=== PATIENT | male | born 1965 | race Caucasian/White ===

== ENCOUNTER 2022-01-18 11:21 | Day surgery (SDC) | payer OTHER, SELFPAY ==
[2022-01-18] VITALS (14 sets, daily range): BP systolic 111–154; BP diastolic 73–107; PULSE 73–91; RESP 13–19; TEMP 36.1–37.7; O2SAT 92–99; BMI 28.7
--- NOTE | 2022-01-18 07:51 | DI.RAD.S_ITS ---
PROCEDURE: XR SHOULDER LT 1V INDICATIONS: post op total shoulder TECHNIQUE: Single views of the shoulder were acquired. COMPARISON: None. FINDINGS: Bones: Left humeral head prosthesis is present. There is gross anatomic alignment of the glenohumeral joint. Acromioclavicular distance is 0.9 cm. The coracoclavicular distance is normal. Soft tissues: No suspicious soft tissue calcifications. No suspicious foreign bodies. IMPRESSION: 1. Single-view appearance of left shoulder arthroplasty as detailed above. Dictated by: Yady Narayan M.D. on 01/18/2022 at 17:06 Approved by: Yady Narayan M.D. on 01/18/2022 at 17:07
[2022-01-18] MEDS: ACETAMINOPHEN 325 MG TABLET 975 MG PO (11:47)
[2022-01-18] MEDS: PREGABALIN 75 MG CAPSULE PO (11:49)
[2022-01-18] MEDS: CELECOXIB 200 MG CAPSULE PO (11:49)
[2022-01-18] MEDS: LACTATED RINGERS 1,000 ML 42 ML IV (12:02)
[2022-01-18 12:12] LABS: COVID19 -Nasal RAPID Negative (Negative)
--- NOTE | 2022-01-18 12:56 | PM.PREOP ---
Pre-operative Note COVID-19 COVID-19 status: Negative Result date/Date tested (Pos, Neg/Pending): 01/18/22 Interval Note History & Physical reviewed/Exam performed by Physician: Yes Changes to H&P: No
[2022-01-18] MEDS: CEFAZOLIN 2 GM/20 ML SYRINGE IV (14:17)
[2022-01-18] MEDS: TRANEXAMIC ACID 1,000 MG VIAL 1000 MG INJ ×2 (14:25→15:39)
--- NOTE | 2022-01-18 14:35 | PM.PROC.1 ---
Procedures Date/Time Date of procedure: 01/18/22 Time of procedure: 13:50 Nerve Block Time out performed: Yes Local anesthetic used: other (15mL 0.5% Ropivacaine, 5mL 2% Lidocaine w/ epi) Location of anesthetic used: interscalene Amount of anesthesia used (mL): 20 Nerve blocks: brachial plexus (interscalene) Procedure successful: Yes Patient tolerated procedure: well Complications: none Additional comments: Brachial plexus nerve block for post operative pain management. Risks and benefits discussed, including bleeding, infection, intravascular injection, nerve damage, block failure. Standard ASA monitors, NC O2. Pt supine. Chloroprep site preparation, sterile technique. Brachial plexus identified with US guidance, traced from supraclavicular to interscalene. 1mL 2% lidocaine skin wheal. 22g x 50mm Pajunk advanced with in-plane US guidance to brachial plexus. Negative aspiration. LA injected with intermittent negative aspiration. Good LA spread noted on US. No pain, no paraesthesia. Pt tolerated procedure well. Vital signs stable.
--- NOTE | 2022-01-18 14:45 | SUR.OPER ---
Beach chair with Schlein shoulder positioner. Lower body on padded OR bed. Head in foam padded head cradle, secured with straps. Non-operative arm secured with cross-body strap, <90 degrees abduction. Pillow under knees. Safety belt at thigh. Gel pad under bilateral heels.
--- NOTE | 2022-01-18 14:52 | SUR.PREOP ---
01/18/22-1347- time out done with Dr Chaves. Sedation started. oxygen at 2l nc. monitors on . ekg-nsr. vs monitored [id number]. procedure completed at 1357. pt tolerated well. sedated but easily aroused. 1400-to OR With RN.
[2022-01-18] MEDS: THROMBIN (RECOMBINANT) 5,000 UNIT VIAL 5000 UNIT TOP (15:15)
[2022-01-18] MEDS: LIDOCAINE 1% W/EPI 20 ML INJ (15:55)
--- NOTE | 2022-01-18 16:01 | P.OP_ITS ---
Operative Date/Time/Diagnoses Date of procedure: 01/18/22 Time of procedure: 16:01 Pre-op diagnosis: Left shoulder posttraumatic osteoarthritis Post-op diagnosis: same Procedure & Clinicians Procedure: Left total shoulder replacement Same procedure as scheduled: Yes Indications: The patient has had progressively worsening left shoulder pain with radiographic changes consistent with arthritis after multiple prior surgeries. Non-operative management has failed and the patient has requested total shoulder replacement. The risks, benefits and alternatives to surgery were discussed with the patient prior to proceeding. Risks discussed included, but were not limited to, failure to relieve pain, stiffness, infection, nerve damage, deep venous thrombosis, pulmonary embolism, stroke, coma, heart attack, permanent paralysis and , as well as the potential need for eventual revision of the prosthetic. Surgeon: Lei Mccann Boiler Plant Operator: Chikis Anthony Click Yes if Unassisted: No Anesthesia Type: General, Peripheral nerve block and Local Operative Notes Findings: Severe osteoarthritis of the left glenohumeral joint with large humeral osteophytes and significant cartilage damage, intact rotator cuff, previously tenodesed biceps. Closure Type: primary Specimen(s): none sent Prosthetic devices, grafts, tissues, transplants, or devices: Implants used in this procedure manufactured by the [employer] and included a 50 mm all polyethylene pegged E +glenoid, a 50 mm x 18 mm neutral humeral head, and a size 2 canal sparing stem. Applied: implant(s) Estimated Blood Loss (mL): 100 Blood products transfused: none Procedure in detail: The patient was seen in the pre-operative area, where the patient identified the right shoulder as the operative site and this was marked with my initials. The patient received pre-operative antibiotics, underwent an interscalene block, and was taken to the operating room and placed on the operative table in the supine position. After satisfactory anesthesia, a full ?time out? was performed. The patient was repositioned in the ?beach chair? position using a dedicated positioner. All pressure points were well padded, and the knees were slightly bent to prevent tension on the sciatic nerves. The right arm was prepared from the fingers to the base of the neck with ChloroPrep in the usual fashion and draped through sterile drapes. An approximately 15 cm incision was created, starting at the clavicle above the coracoid process and extended towards the deltoid insertion. The deltopectoral interval was used to access the shoulder. The cephalic vein was taken medially. A self retaining retractor was placed. The upper centimeter of the pectoralis major tendon was released. The ?three sisters? were identified and cauterized. The axillary nerve was palpated and protected throughout the case. The biceps groove was used as a guide to access the shoulder joint. The biceps had been tenodesed previous procedure and was not tenodesed at this procedure. The subscapularis was released from the lesser tuberosity with a subscapularis tenotomy and tagged for later repair. The shoulder was dislocated and a cutting guide was used for the proximal humeral osteotomy in 30 degrees of retroversion. A trial humeral head was used to position a guide pin in the center of the cut surface and the collar Reamer was used. A size 2 Broach was placed. A proximal humeral protector was then placed. We then removed the self-retaining retractor and placed retractors to access the glenoid. The subscapularis was released with a ?360 degree release? with care being taken to protect the axillary nerve with the inferior portion of this procedure. The remnant of labrum and biceps stump were removed. The appropriate size reamer was chosen with the glenoid sizer, and the guide pin placed. The glenoid was appropriately reamed. The guide for the peripheral holes was used and the center hole enlarged. The trial glenoid was placed with good stability. We then cemented the final implant into place after irrigating the peg holes and drying them with thrombin-soaked Gelfoam. We returned our attention to the humerus, a trial humeral head was applied and a trial reduction performed. Stability was checked with 50% posterior translation with spontaneous reduction, 45? external rotation at the side with the subscapularis held in the repaired position and 70? of internal rotation in the ?[place] position?.. This was felt to be satisfactory and the appropriate implants were opened. Five holes were drilled along the humeral osteotomy and #2 Ethibond sutures placed for eventual subscapularis repair. The humeral prosthetic was impacted into the humerus. The humeral head was applied when the stem was still slightly proud and impacted to both seat the head and fully seat the stem. The joint was relocated one final time. The joint was irrigated and the subscapularis repaired to the previously placed sutures using Fernando-Minesh sutures. The top of the subscapularis was closed to the leading edge of the supraspinatus with a figure of 8 #2 Ethibond to close the rotator interval. The deltopectoral interval was closed with interrupted 0 Vicryl. The subcutaneous layer was closed with 3-0 Vicryl, and the skin with a running 3-0 V-Lock suture and Dermabond. An Aquacel Ag dressing was applied, the patient?s arm was placed in a sling, and the patient was taken to recovery having tolerated the procedure well. The services of a skilled real estate administrative assistant were necessary during this procedure to pr ovide retraction and suction to allow visualization of the glenoid. Glenoid implantation would not have been possible without the services of Ms. Anthony. Complications: none Post-operative Condition: stable Disposition: PACU Plan for aftercare: The patient will maintain on a standard total shoulder procedure protocol with use of the arm in front of the body, below shoulder level only to lift 1-2 lb.
[2022-01-18] MEDS: IBUPROFEN 400 MG TABLET PO ×2 (17:30→22:12)
[2022-01-18] MEDS: LACTATED RINGERS 1,000 ML 100 ML IV (17:30)
--- NOTE | 2022-01-18 17:49 | SUR.PHASEI ---
1656 to room 209, bed down and locked, call light within reach, clothing bag placed in the closet, SCDs on. Hand-off to RN, no questions from her or patient.
--- NOTE | 2022-01-18 18:58 | PC.NURSE ---
Pt arrived to the unit around 1705 from PACU. pt is AxOx4 but pt was very sleepy when he came. VSS, pt denies pain. Pt has Aquacel drsg on L shoulder and sling on. Pt ate dinner well and drank plenty of fluid. Pt just went to the bathroom to void. No pain. Now LR is running 100 ml/hr. No other changes.
[2022-01-18] MEDS: ASPIRIN EC 81 MG TABLET PO (22:12)
[2022-01-18] MEDS: DOCUSATE 100 MG CAPSULE PO (22:13)
[2022-01-19 00:10] VITALS: BP 134/74; PULSE 78; RESP 16; TEMP 36.6; O2SAT 96
[2022-01-19 04:10] VITALS: BP 171/89; PULSE 84; RESP 18; TEMP 36.7; O2SAT 97
[2022-01-19] MEDS: IBUPROFEN 400 MG TABLET PO ×2 (05:09→09:55)
[2022-01-19] MEDS: ACETAMINOPHEN 325 MG TABLET 650 MG PO (05:09)
[2022-01-19] MEDS: LACTATED RINGERS 1,000 ML 100 ML IV (05:09)
[2022-01-19] MEDS: HYDROMORPHONE 2 MG TABLET PO ×2 (05:13→09:55)
[2022-01-19 06:50] LABS: Hematocrit 36.5 % (41-53); Hemoglobin 12.5 g/dL (13.5-17.5)
--- NOTE | 2022-01-19 07:54 | PM.DS.1 ---
History of Present Illness History of Present Illness Date Patient Seen: 01/19/22 Time Patient Seen: 07:55 Chief complaint: Shoulder pain Narrative: Pain is been moderate to severe but currently managed with meds. Denies fever or chills. No nausea or vomiting. Patient does have assistance at. Discharge Providers Provider Discharge Date: 01/19/22 Consults: 01/18/22 16:56 Consult to Discharge Planning Routine Comment: Consult to Physical Therapy Evaluate & Treat Comment: Physician Instructions: pendulums, PROM 90 FF, 0 ER, 0 Abd, IR to body Consult to Respiratory Therapy Evaluate & Treat Comment: Physician Instructions: Evaluate and treat Discharge provider: Raymundo Ryan PA-C Summary Hospital Course Discharge Diagnosis: Left shoulder posttraumatic osteoarthritis Hospital Course: Left total shoulder replacement Same procedure as scheduled: Yes Indications: The patient has had progressively worsening left shoulder pain with radiographic changes consistent with arthritis after multiple prior surgeries. Non-operative management has failed and the patient has requested total shoulder replacement. The risks, benefits and alternatives to surgery were discussed with the patient prior to proceeding. Risks discussed included, but were not limited to, failure to relieve pain, stiffness, infection, nerve damage, deep venous thrombosis, pulmonary embolism, stroke, coma, heart attack, permanent paralysis and , as well as the potential need for eventual revision of the prosthetic. Surgeon: Lei Mccann Lead Sharepoint Developer: Chikis Anthony Click Yes if Unassisted: No Anesthesia Type: General, Peripheral nerve block and Local Operative Notes Findings: Severe osteoarthritis of the left glenohumeral joint with large humeral osteophytes and significant cartilage damage, intact rotator cuff, previously tenodesed biceps. Closure Type: primary Specimen(s): none sent Prosthetic devices, grafts, tissues, transplants, or devices: Implants used in this procedure manufactured by the [employer] and included a 50 mm all polyethylene pegged E +glenoid, a 50 mm x 18 mm neutral humeral head, and a size 2 canal sparing stem. Applied: implant(s) Estimated Blood Loss (mL): 100 Blood products transfused: none Patient admitted for the above-mentioned procedure. Patient taken operating room on January 18, 2022 underwent left total shoulder replacement. Patient back in his room recovering well as in stable condition. Patient will be maintained on standard total shoulder procedure protocol with use of arm in front the body, below shoulder level only to lift 1-2 lb. Multimodal pain management. Discharge home today after physical therapy if safe for home environment. Status at Discharge Cognitive/behavioral status at discharge: at baseline, oriented Overall status at discharge: patient is progressing back to baseline Exam Vital Signs (past 8 hours): - 01/19/22 00:10 01/19/22 04:10 Temperature 97.8 F 98.1 F Pulse Rate 78 84 Respiratory Rate 16 18 Blood Pressure 134/74 171/89 H Pulse Oximetry 96 97 Oxygen Flow Rate 0 0 Oxygen Delivery Method Room Air Oxygen Flow Rate 0 Narrative Exam Narrative: 56-year-old male resting comfortably in bed in no apparent distress. Dressing is Clean, dry, intact.. Motor functions intact distal left upper extremity. Sensation grossly intact to light touch distal left upper extremity. Const General: cooperative Resp Effort & Inspection: normal respiratory effort and able to speak in complete sentences Objective Labs Result Diagrams: 01/19/22 06:16 Labs: Laboratory Results - last 24 hr 01/18/22 01/19/22 11:45 06:16 Hgb 12.5 L Hct 36.5 L SARS-CoV-2 (PCR) Negative [facility] Medical History Arthritis Surgical History History of arthroscopy of left shoulder History of carpal tunnel surgery of left wrist History of carpal tunnel surgery of right wrist Hx of tonsillectomy Social History household members: none Smoking Status: Current every day smoker alcohol intake: former Discharge Assessment & Plan Assessment and Plan Assessment: Stable status post left total shoulder replacement Plan of Treatment: Mobilize with physical therapy, patient will be maintained on a standard total shoulder procedure protocol with use of arm in front of the body, below shoulder level, only to lift 1-2 lb Multimodal pain management Discharge home today in stable condition after physical therapy if safe for home environment Discharge Plan Discharge Plan Patient Disposition: Home Discharge orders & Medications Discharge Orders: Discharge (Order); Ordered 01/19/22 Ordered By: Raymundo Ryan Prescriptions: New acetaminophen 325 mg Tablet 650 mg PO Q6HR Qty: 60 0RF aspirin 81 mg Tablet,Delayed Release (Dr/Ec) 81 mg PO BID Qty: 60 0RF docusate sodium 100 mg Capsule 100 mg PO BID Qty: 20 0RF hydromorphone 2 mg Tablet 2 mg PO Q3H PRN (Reason: Pain, Severe (7-10)) Qty: 30 0RF ibuprofen 400 mg Tablet 400 mg PO Q4HR Qty: 60 0RF hydroxyzine pamoate 25 mg Capsule 25 mg PO Q6H PRN (Reason: Muscle Spasm) Qty: 30 0RF oxycodone 10 mg Tablet 10 mg PO Q3HR PRN (Reason: Pain, Severe (7-10)) Qty: 40 0RF Follow up/Referrals: Lei Mccann MD [Physician] - (10-14 days for a postop visit) Diet/Activity/Treatments Diet: Diet as Tolerated Other treatments: Dressing/Wound care: -Keep Aquacell dressing in place until postoperative follow-up office visit. -Okay to shower. Keep wound out of direct water stream. No soaking or submerging until all the scabs fall off (approximately 6 weeks). -Please call the office if dressing becomes wet, soiled, or saturated. Activities: -Maintain standard total shoulder protocol: -OK to use your hand in front of your body, below shoulder level; ok to lift 1-2 lb for the first several weeks. Your activities will be advanced by physical therapy. -Continue with sling. -Continue with home exercises as directed by your physical therapist, including Codman/pendulum exercises. -Ice your incision as needed for pain/inflammation/swelling. Protect your skin with a folded pillowcase. -Incentive Spirometer (breathing device from hospital): 5-10xs every hour while awake for the first 1-2 weeks. Follow-up: -Follow-up with your surgeon or PA in the office in 10-14 days after surgery. -Follow-up with your surgeon 6 weeks postoperatively. Call the office if you have chest pain, shortness of breath, significant swelling that will not resolve with elevating, fever over 101?, significantly worsening pain, or are concerned you might need to go to the Emergency Room. [facility]: [phone] Skin/Wound/Dressing Care Report to your healthcare provider any signs of infection, such as:: chills, fever, night sweats, unusual drainage and unusual redness Visit Report/Discharge Packet Instructions: DI for Shoulder Replacement Stand Alone Forms: Surgery Discharge Discharge Data Attending Provider: Lei Mccann Quality VTE Deep Vein Thrombosis/Pulmonary Embolism Present on Admission: No
[2022-01-19 08:00] VITALS: BP 127/83; PULSE 92; RESP 17; TEMP 37; O2SAT 99
--- NOTE | 2022-01-19 09:25 | PT.IIE ---
Current Diagnoses Primary osteoarthritis, left shoulder (01/18/22) Surgery Performed Operation Date: 01/18/22 12:30 Actual Procedures p Total Shoulder Arthroplasty(Left) - Lei Mccann MD Surgical History (Last Reviewed 01/19/22 @ 07:59 by Raymundo Ryan PA-C) History of arthroscopy of left shoulder History of carpal tunnel surgery of left wrist History of carpal tunnel surgery of right wrist Hx of tonsillectomy Medical History (Last Reviewed 01/19/22 @ 07:59 by Raymundo Ryan PA-C) Arthritis Physical Therapy Inpatient Evaluation/Re-Eval M1 PT/OT-IP Prior Functional Status Start: 01/19/22 12:57 Freq: NEEDED Status: Active Protocol: Document 01/19/22 09:25 AB (Rec: 01/19/22 13:05 AB [id number]) Medical Review Prior Functional Status Medical History Reviewed Yes Communication able to make needs known Mobility and Gait pt stated that he is independent with all mobilities and ambulation without AD Social History Household Members other Living Arrangements Homeless Number of Floors (Floors) 3 or More Floors Number of Stairs To Enter/Railing? elevator to get into his floor pt stated that he is staying at a hotel in [facility] d/ c for ~ 1 wk but will be homeless after that Home Environment Standard Height Toilet,Walk in Shower,Elevator Home Equipment Grab Bars In Shower Employment Status Unemployed Additional Social History Comment pt stated that his GF will assist him M2 PT-IP Current Condition Start: 01/19/22 12:57 Freq: NEEDED Status: Active Protocol: Document 01/19/22 09:25 AB (Rec: 01/19/22 13:05 AB [email or web address]) Physical Therapy Current Condition Current Condition Evaluation Date 01/19/22 Treatment Diagnosis s/p L TSA; difficulty in walking Onset Date 01/18/22 M3 PT-IP Subjective Start: 01/19/22 12:57 Freq: NEEDED Status: Active Protocol: Document 01/19/22 09:25 AB (Rec: 01/19/22 13:05 AB [id number]) Subjective Physical Therapy Visit Type Type Initial Evaluation Visit Start Time 09:25 Visit Stop Time 09:50 Total Visit Minutes 25 Number of BRICK PITCHER Visits 0 Physical Therapy Visit Comments Patient Comments agreeable to do PT M4 PT-IP Mobility and Gait Start: 07/28/22 12:57 Freq: NEEDED Status: Active Protocol: Document 01/19/22 09:25 AB (Rec: 01/19/22 13:05 AB [id number]) PT-Bed Mobility Assessment Supine to Sit Supine to Sit Standby Assistance PT-Transfer Assessment Sit to and From Stand Sit to and from Stand Standby Assistance Equipment Transfer Assistive Device None,Gait Belt Orthotic/Prosthetic Devices or Brace: Yes Transfers Transfer Destination Chair Transfer Technique ambulated Transfer Ability Level of Assist Standby Assistance Comments Mobility Comments completed supine to sit SBA. c/o increase L shoulder pain. pt stated that this is his 4th shoulder surgery. educated pt on sling management, pendulum exercises and elbow/hand/wrist exercises. assisted pt with sling management. refused caregiver training and stated that he can inform his GF on how to manage the sling. pt refused pendulum exercises due to c/o shoulder pain. completed elbow/wrist/hand exercises. completed sit to stand SBA and ambulated in room without AD SBA~ 50 ft. unsteady gait but without LOB. pt agreed to sit on the chair. positioned on the chair. call light and table placed within reach. Gait Assessment Gait Gait Assistance Required: Standby Assistance Distance (Feet) 50 Able to Maintain Weight Bearing Status Yes During Gait Assistive Devices Assistive Device None,Gait Belt Orthotic/Prosthetic Devices or Brace: Yes Gait Deviations General Gait Pattern Antalgic Factors Limiting Gait Function Factors Limiting Gait Function Decreased Activity Tolerance, Decreased Strength,Limited Range of Motion,Pain,Poor Balance,Poor Safety Awareness PT-Balance Assessment Sitting Balance and Reactions Static Sitting Balance Ability Normal Dynamic Sitting Balance Ability Normal Standing Balance and Reactions Static Standing Balance Ability Good Dynamic Standing Balance Ability Fair Device Used without AD M5 PT-IP Objective Assessments Start: 01/19/22 12:57 Freq: NEEDED Status: Active Protocol: Document 01/19/22 09:25 AB (Rec: 01/19/22 13:05 AB [id number]) Orientation Orientation/Cognition Level of Alertness Alert Orientation Name,Place,Situation Language Function Ability No Deficits Noted Safety Awareness Decreased Safety Awareness Memory Description No Deficits Noted Gross Range of Motion Lower Extremity ROM Assessment Within Functional Limits Sensation Assessment Sensation Gross Sensation WNL Muscle Tone Muscle Tone WNL Yes M6 PT-IP Treatment Start: 01/19/22 12:57 Freq: NEEDED Status: Active Protocol: Document 01/19/22 09:25 AB (Rec: 01/19/22 13:05 AB [id number]) Physical Therapy Treatment Exercises Exercises Elbow Flexion/Extension,Wrist ROM,Hand ROM Education Education Provided Precautions,Weight Bearing Status,Post-Op Packet,Safety M7 PT-IP Assessment and Plan Start: 01/19/22 12:57 Freq: NEEDED Status: Active Protocol: Document 01/19/22 09:25 AB (Rec: 01/19/22 13:05 [email or web address] PT Summary Assessment and Plan Potential Rehabilitation Potential Fair Status of Condition at Evaluation Stable Summary Impairments Pain,ROM,Strength,Balance, Coordination,Sensation,Tone, Cognition,Bed Mobility, Transfers,Gait,Activity Tolerance Assessment Summary pt requiring SBA with mobility and will have his GF to assist him upon d/c. pt may go home when medically stable Goals Bed Mobility Goal Independent Transfer Goal Independent Gait Goal Independent Gait Distance 200 Days to Meet Goals 3 Frequency of Treatment Frequency Of Treatment Twice a Day Treatment Plan Physical Therapy Treatment Plan Bed Mobility Training,Transfer Training,Gait Training, Therapeutic Exercise,Balance Retraining,Post Op Education, Discharge Planning,Hot or Cold Pack,Neuromuscular Re-ed, Coordination Retraining,Manual Therapy Precautions Shoulder Precautions Sling,PROM,Internal Rotation to Body,No External Rotation, No Abduction,Forward Flexion to 90 degrees,Pendulums Weight Bearing Status Weight Bearing Status Non-Weight Bearing Allowed Weight Bearing Amount (enter % LUE NWB or #) (%) Recommendations To Nursing Amount of Assist Needed Standby Assistance Discharge Recommendations PT Discharge Recommendations Home with Assistance, Outpatient PT Transportation Needs at Discharge Private Vehicle
[2022-01-19] MEDS: ASPIRIN EC 81 MG TABLET PO (09:55)
[2022-01-19] MEDS: DOCUSATE 100 MG CAPSULE PO (09:55)
--- NOTE | 2022-01-19 10:28 | PC.NURSE ---
Assess- Patient is alert and oriented x4, complained of pain to l.shoulder at 7/10, given dilaudid 2mg for discomfort and helpful. Dressing cdi with aquacel to l.shoulder with sling in place. Patient is going to be discharged at 1130 and passed physical therapy.
--- NOTE | 2022-01-19 12:19 | CM.DANOTE ---
DCP: Case received, EMR reviewed and met with patient. Introduced self and role. Was able to obtain information regarding patient's baseline activity status at home prior to surgery, as well as his current living situation. DCP assessment completed with information currently available. Patient is a 56 year old male who admitted yesterday morning to the care of the orthopedic team. PCP: None currently Payer: confirmed: [employer]. Patient came to the hospital for a surgical procedure. Patient had a left shoulder replacement. Patient has history of osteoarthritis. According to notes, non-operative management has failed, patient requesting shoulder replacement. Met with patient in his room. Had checked on him prior, and had been sleeping. Did check in with patient. He had been sitting in his chair, sleeping on occasion. Confirmed with patient that he resides in [place]. He is currently staying in a hotel until he finds a home. His friend, Dimple Liriano, is staying with him and he stated should be ablt to give him some assistance at home. He does not have a provider at this time. He is to be working with P.T. today. P: Patient has discharge orders today, pending working with therapy. Kassy Real RN/[employer] Setter Discharge Planning/Care Management CM Discharge Assessment Start: 01/19/22 12:17 Freq: Status: Active Protocol: Document 01/19/22 12:17 (Rec: 01/19/22 12:19 [id number]) Discharge Planning Assessment Assigned Pattern Grader Cutter Kassy Real RN/[employer] Setter Advance Directives? No History Provided By Patient,Medical Record Prior Living Arrangements House Comment Patient has been staying in a hotel Household Members other Comment His friend, Dimple, has been staying with him Type of transporation used prior to Drives own vehicle admit Independent with ADL's Yes Is patient alert and oriented? Yes Caregiver for Another No Patient/Family Preference OP PT Therapy Comment Does not have a primary care provider, and is staying in a hotel. Referrals Initiated None needed Whiteboard Updated in Patient Room with Yes name and ext. # of Pattern Grader Cutter Review Status In Process Next Review Type Continued Stay Review
== END 2022-01-19 14:15 | disposition home or self-care (01) ==
LOC: OR 11:23 → AC 16:33
PROVIDERS: Referring Provider Orthopaedic Surgery; Visit Provider Orthopaedic Surgery
PROC: (CPT 23472; principal; 2022-01-18 12:30)
DX: M12.512 Traumatic arthropathy, left shoulder (principal); F17.210 Nicotine dependence, cigarettes, uncomplicated
CPT/HCPCS: 23472; 36415; 64415; 73020; 85014; 85018; 87635; 97161; C1776; C9803; J0690; J1100; J2250; J2405; J2704; J3010